=== PATIENT | male | born 1985 | race Caucasian/White ===

== ENCOUNTER 2018-09-10 01:46 | Emergency (ER) | payer BC | END 2018-09-10 03:32 | disposition home or self-care (01) | LOC: MADERS 01:46 | DX: J06.9 Acute upper respiratory infection, unspecified (principal); F17.210 Nicotine dependence, cigarettes, uncomplicated | CPT/HCPCS: 99283 ==

== ENCOUNTER 2020-12-12 08:03 | Emergency (ER) | payer BC ==
--- NOTE | 2020-12-12 08:35 | RAD ---
XR Hand Lt 3 View STANDARD History: Crush injury Comparison: None. Findings: Spherical 4 mm radiopacity is present in the deep soft tissues between the middle finger an d ring finger metacarpal necks. Along the volar aspect of the superficial soft soft tissues near the same level is a punctate 1 x 2 mm radiopacity. No underlying fracture. Impression: Radiopaque foreign objects between the middle and ring finger metacarpal necks as describ ed.
== END 2020-12-12 08:50 | disposition home or self-care (01) ==
LOC: MADERS 08:03
DX: S60.222A Contusion of left hand, initial encounter (principal); F17.210 Nicotine dependence, cigarettes, uncomplicated; W31.89XA Contact with other specified machinery, initial encounter